=== PATIENT | male | born 1940 | race Caucasian/White ===

== ENCOUNTER → 2016-10-14 | Outpatient (CLI) | payer MEDICARE, BC | LOC: KOH-I 15:29 | DX: R79.89 Other specified abnormal findings of blood chemistry (principal) | CPT/HCPCS: 76700 ==

== ENCOUNTER → 2020-07-16 | Outpatient (CLI) | payer MEDICARE, BC | LOC: HEART 5 14:07 | DX: I48.92 Unspecified atrial flutter (principal) ==

== ENCOUNTER → 2021-03-25 | Outpatient (CLI) | payer MEDICARE, BC | LOC: KOH-I 12:30 | DX: L03.113 Cellulitis of right upper limb (principal); R60.9 Edema, unspecified; I10 Essential (primary) hypertension; M79.601 Pain in right arm; I48.0 Paroxysmal atrial fibrillation | CPT/HCPCS: 93971 ==

== ENCOUNTER → 2021-04-03 | Outpatient (CLI) | payer MEDICARE, BC | LOC: MRI 12:45 → KOH-I 04-08 14:30 → MRI 04-08 14:30 | DX: M79.601 Pain in right arm (principal); M25.411 Effusion, right shoulder | CPT/HCPCS: 36415; 73220; 82565; 84520; A9577 ==